=== PATIENT | female | born 1980 | race African-American/Black ===

== ENCOUNTER 2021-03-31 09:02 | Outpatient (REF) | payer OTHER, SELFPAY ==
[2021-03-31 09:20] LABS: MANUAL DIFF FLAG NO
[2021-03-31 10:11] LABS: Eosinophils Absolute Auto 0.1 X10*3/uL (0.0-0.4); Eosinophils Percent Auto 3.6 % (0-4); Hematocrit 40.5 % (37.0-47.0); Hemoglobin 13.1 g/dl (12.0-16.0); Lymphocytes Absolute Auto 1.2 X10*3/uL (1.2-4.9); Mean Corpuscular HGB Conc 32.3 g/dl (31.0-35.0); Mean Corpuscular Hemoglobin 29.4 pg (27.0-33.0); Mean Platelet Volume 9.8 fL (9.4-12.3); Monocytes Absolute Auto 0.4 X10*3/uL (0.1-1.2); Monocytes Percent Auto 14.3 % (2-11); Neutrophils Absolute Auto 1.3 x10*3/uL (2.0-8.3); Neutrophils Percent Auto 42.1 % (45-73); Platelet Count 296 X10*3/uL (160-400); Red Blood Count 4.45 X10*6/uL (4.20-5.50); Red Cell Distribution Width 11.9 % (11.0-16.0); White Blood Count 3.1 X10*3/uL (4.8-10.8)
[2021-03-31 10:25] LABS: Alanine Aminotransferase 12 U/L (0-31); Albumin Level 4.2 g/dL (3.5-5.0); Alkaline Phosphatase 51 U/L (39-117); Anion Gap 9 (12-20); Aspartate Amino Transferase 19 U/L (5-31); Bilirubin Total 0.9 mg/dL (0.0-1.0); Blood Urea Nitrogen 10 mg/dL (9-16); Calcium 9.5 mg/dL (8.4-10.2); Carbon Dioxide 27 mmol/L (22-29); Chloride 107 mmol/L (96-108); Cholesterol 185 mg/dL; Estimated Glomerular Filt Rate > 60; Glucose Fasting 94 mg/dL (60-99); HDL Cholesterol 48 mg/dL; Iron 145 mcg/dL (30-160); LDL Cholesterol Calculated 128 mg/dl; Percent Iron Saturation 42 % (15-50); Potassium 4.9 mmol/L (3.3-5.1); Sodium 138 mmol/L (135-145); Total Iron Binding Capacity 342 mcg/dL (228-428); Total Protein 7.6 g/dL (6.5-8.0); Triglycerides 49 mg/dL; Unsaturated Iron Binding 197 ug/dL
== END 2021-03-31 09:03 | disposition home or self-care (01) ==
LOC: HO.LAB 09:02
PROVIDERS: PCP Nurse Practitioner Family; Visit Provider Nurse Practitioner Family
DX: I10 Essential (primary) hypertension (principal); E78.00 Pure hypercholesterolemia, unspecified; D50.9 Iron deficiency anemia, unspecified; H11.009 Unspecified pterygium of unspecified eye; Z76.89 Persons encountering health services in other specified circumstances
CPT/HCPCS: 36415; 80053; 80061; 83540; 85025

== ENCOUNTER → 2021-07-12 09:29 | Outpatient (BNVA) | payer OTHER, SELFPAY | PROVIDERS: PCP Nurse Practitioner Family; Referring Provider Nurse Practitioner Family; Visit Provider Physician Assistant | DX: K64.4 Residual hemorrhoidal skin tags (principal); K64.8 Other hemorrhoids | CPT/HCPCS: 99202 ==

== ENCOUNTER → 2021-08-02 09:03 | Outpatient (BNVA) | payer OTHER, SELFPAY | PROVIDERS: PCP Nurse Practitioner Family; Referring Provider Physician Assistant; Visit Provider Surgery | DX: K64.4 Residual hemorrhoidal skin tags (principal); K64.8 Other hemorrhoids | CPT/HCPCS: 46600; 99202 ==

== ENCOUNTER 2023-04-03 09:05 | Outpatient (AMB) | payer SELFPAY ==
--- NOTE | 2023-04-03 09:07 | MHC.OFFVIS ---
Intake Vital Signs 04/03/23 09:13 Height 5 ft 3 in Weight 146 lb BMI 25.9 BP 120/71 Blood Pressure Location Rt brachial Position Sitting Pulse 91 Intake Visit Reasons: rectal bleeding, hemorrhoids re-discuss surgery Intake Note: This patient presents for an assessment to re-discuss hemorrhoidectomy, rectal bleeding, hemorrhoids. Pt c/o; reports rectal bleeding intermittent, hemorrhoids, reports no constipation, reports occasional bloating. Patient Resource Coordinator Required: No Back Up Scan Coordinator: Back Up Scan Coordinator offered & declined Accompanied by: Self / Same As Patient Allergies cat dander Allergy (Mild, Verified 04/03/23 09:14) unknown dog dander Allergy (Mild, Verified 04/03/23 09:14) Unknown tree and shrub pollen Allergy (Mild, Verified 04/03/23 09:14) Unknown Medication List - Last Reconciled 04/03/23 by Antwon Rhodes MD hydrocortisone-pramoxine 2.5-1 % 1 appl NC BID-TID PRN meclizine 12.5 mg PO TID PRN 10 days ondansetron HCl 4 mg PO Q8H PRN 7 days psyllium husk (Metamucil) 0.4 grams PO DAILY triamcinolone acetonide 0.5% 1 appl topical DAILY 15 days valacyclovir 500 mg PO DAILY witch samantha 50% (Preparation H (Witch Samantha)) 1 pad topical BID-TID PRN HPI rectal bleeding, hemorrhoids re-discuss surgery HPI Details 43-year-old female here because of hemorrhoidal issues. I had seen her in 2021 because of her hemorrhoids. She stated then that she was about 10 years ago, she has been having periodic pain, swelling and bleeding with her hemorrhoids. This seemed to have worsened the past few years . I had the long talk with her about the option of proceeding with hemorrhoidectomy but she decided not to proceed then She is here today to schedule for her hemorrhoidectomy as she continues to have episodes of significant pain, swelling and bleeding. She denies being constipated. [facility]LY [facility] Surgical History No pertinent past surgical history Family History Mother Hypertension Diabetes mellitus Father No problems noted. Social History (Reviewed 04/03/23 @ 09:15 by Suly Warren [facility] House Patient Tobacco Use Status: Never used Tobacco e-Cigarette/Vaping Use: Never Used Second Hand Smoke Exposure: No service: No Current occupational status: employed Cognitive needs: No Hearing needs: No Vision needs: No Review of Systems Const Denies chills and Denies fever(s) Card Denies chest pain, Denies dyspnea and Denies dyspnea on exertion Resp Denies cough, Denies dyspnea and Denies dyspnea on exertion GI Denies hematochezia and Denies change in bowel habits Denies hematuria Musc Denies back pain and Denies limited range of motion Neuro Denies focal weakness and Denies convulsions Psych Denies depression and Denies mood swings Physical Exam Vital Signs: Last Vital Signs Pulse 91 04/03/23 09:13 BP 120/71 04/03/23 09:13 BMI result Body Mass Index 25.9 Const General: comfortable and no acute distress Orientation/consciousness: patient oriented x3 Neck Neck: Yes no lymphadenopathy Resp Auscultation: clear to auscultation bilaterally Cardio Rhythm: regular rhythm GI Other: Rectal exam shows external hemorrhoids, moderate size on the right, smaller 1 on the left Palpation (GI): Soft to palpation, nontender and no guarding Neuro General: patient oriented x3 Assessment & Plan Assessment & Plan (1) Internal and external bleeding hemorrhoids: Comment: ref to Dr. Rhodes Code(s): K64.4 - Residual hemorrhoidal skin tags; K64.8 - Other hemorrhoids Plan: She continues to have episodes of pain, bleeding, and swelling of her hemorrhoids. She wants to proceed with hemorrhoidectomy. I had a long discussion with her about the technique of exam under anesthesia and hemorrhoidectomy. I discussed the risks including but not limited to bleeding, infections, postop pain, sphincter injury, poor healing, as well as the benefits and alternatives. I reviewed with her what to expect postoperatively. She wants to proceed. Coding Level of Care Code Est Pt Level 3 (12296) Diagnoses Internal and external bleeding hemorrhoids K64.4; K64.8
[2023-04-03 09:13] VITALS: BP 120/71; PULSE 91; BMI 25.9
== END 2023-04-03 09:36 | disposition home or self-care (01) ==
PROVIDERS: PCP Physician Assistant; Visit Provider Surgery
DX: K64.4 Residual hemorrhoidal skin tags (principal); K64.8 Other hemorrhoids
CPT/HCPCS: 99213

== ENCOUNTER → 2023-04-03 09:05 | Outpatient (BNVA) | payer SELFPAY | PROVIDERS: PCP Physician Assistant; Visit Provider Surgery | DX: K64.4 Residual hemorrhoidal skin tags (principal); K64.8 Other hemorrhoids | CPT/HCPCS: 99212 ==

== ENCOUNTER 2024-05-13 08:23 | Outpatient (REF) | payer OTHER, SELFPAY ==
[2024-05-13 09:30] LABS: Hematocrit 39.5 % (37.0-47.0); Hemoglobin 12.4 g/dl (12.0-16.0); Mean Corpuscular HGB Conc 31.4 g/dl (31.0-35.0); Mean Corpuscular Hemoglobin 26.7 pg (27.0-33.0); Mean Corpuscular Volume 84.9 fL (80.0-98.0); Mean Platelet Volume 10.2 fL (9.4-12.3); Platelet Count 339 X10*3/uL (160-400); Red Blood Count 4.65 X10*6/uL (4.20-5.50); Red Cell Distribution Width 13.3 % (11.0-16.0); White Blood Count 3.6 X10*3/uL (4.8-10.8)
[2024-05-13 10:24] LABS: Iron 173 mcg/dL (30-160); Percent Iron Saturation 58 % (15-50); Total Iron Binding Capacity 299 mcg/dL (228-428); Unsaturated Iron Binding 126 ug/dL
[2024-05-13 10:40] LABS: TSH reflex Free T4 < 0.01 uIU/mL (0.32-4.0)
[2024-05-13 11:20] LABS: Free T4 (Free Thyroxine) 1.37 ng/dL (0.71-1.85)
[2024-05-14 08:19] LABS: Prolactin 18.4 ng/mL
== END 2024-05-13 08:24 | disposition home or self-care (01) ==
LOC: HO.LAB 08:23
PROVIDERS: Absent Provider Nurse Practitioner; PCP Physician Assistant; Visit Provider Physician Assistant
DX: Z13.1 Encounter for screening for diabetes mellitus (principal); R79.89 Other specified abnormal findings of blood chemistry; D50.9 Iron deficiency anemia, unspecified
CPT/HCPCS: 36415; 83540; 84146; 84439; 84443; 85027

== ENCOUNTER 2024-06-02 15:58 | Outpatient (AMB) | payer OTHER, SELFPAY ==
[2024-06-02 16:02] VITALS: BP 110/70; PULSE 84; TEMP 36.3; O2SAT 99; BMI 26.1
--- NOTE | 2024-06-02 16:02 | A.OFFPC_ITS ---
Vital Signs 06/02/24 16:02 Height 5 ft 3 in Weight 147 lb 2 oz BMI 26.1 BP 110/70 Blood Pressure Location Lt brachial Position Sitting Pulse 84 Pulse Source Pulse Oximeter Temp 97.3 F Temp Source Temporal Artery Scan Pulse Oximetry (%) 99 Oxygen Delivery Method Room Air Intake Visit Reasons: establish care Working Manager Required: No Accompanied by: Self / Same As Patient Is last menstrual period known: Yes Last menstrual period: 05/17/24 Allergies cat dander Allergy (Mild, Verified 06/02/24 16:09) unknown dog dander Allergy (Mild, Verified 06/02/24 16:09) Unknown tree and shrub pollen Allergy (Mild, Verified 06/02/24 16:09) Unknown Medication List - Last Reconciled 06/02/24 by Jose Mejia PA-C hydrocortisone-pramoxine 2.5-1 % 1 appl SD BID-TID PRN meclizine 12.5 mg PO TID PRN 10 days ondansetron HCl 4 mg PO Q8H PRN 7 days triamcinolone acetonide 0.5% 1 appl topical DAILY 15 days valacyclovir 500 mg PO DAILY witch samantha 50% (Preparation H (Witch Samantha)) 1 pad topical BID-TID PRN Tobacco use date assessed: 03/30/21 HPI establish care HPI Details The patient is a 44-year-old female presenting with issues related to thyroid dysfunction and systolic hypertension. The patient has recent laboratory results from an endocrine evaluation showing abnormalities with TSH and prolactin levels . Family history reveals thyroid issues, namely Graves' disease present within immediate relatives, specifically her sister and niece. A noted historical condition of vertigo prompted lifestyle changes, ceasing alcohol and caffeine to prevent exacerbation. The patient's health management includes monitoring previous anemia, now reversed showing elevated serum iron, possibly linked to prolonged vitamin use since her last . Additionally, the patient reports an enduring rash condition coinciding with vertigo following her COVID-19 vaccination. She reports the rash as persisting in various locations, causing significant itchiness, which triamcinolone resolves. A known bleeding issue associated with the copper IUD is under current evaluation and management, with pending removal for resolution. Mammo: Has following [facility] mitten stitcher and getting mammograms. SMASH PIECER: Does see a SMASH PIECER at [facility] ( Dr. Hillman) Colon cancer screening: Interested in doing Cologuard [facility] Surgical History No pertinent past surgical history Family History (Updated 06/02/24 @ 16:14 by Jose Mejia PA-C) Mother Hypertension Diabetes mellitus Father No problems noted. Sister Graves disease Social History (Updated 06/02/24 @ 16:15 by Jose Mejia PA-C) Housing: House Alcohol intake: former Patient Tobacco Use Status: Never used Tobacco e-Cigarette/Vaping Use: Never Used Second Hand Smoke Exposure: No service: No Current occupational status: employed Current occupation: [employer] Cognitive needs: No Hearing needs: No Vision needs: No Female Reproductive History Menstrual Date of last menstrual period: 05/17/24 Questionnaire PHQ-9 Over the last 2 weeks, how often have you been bothered by any of the following problems? 1. Little interest or pleasure in doing things: not at all 2. Feeling down, depressed, or hopeless: not at all 3. Trouble falling or staying asleep, or sleeping too much: not at all 4. Feeling tired or having little energy: not at all 5. Poor appetite or overeating: not at all 6. Feeling bad about yourself - or that you are a failure or have let yourself or your family down: not at all 7. Trouble concentrating on things, such as reading the newspaper or watching television: not at all 8. Moving or speaking so slowly that other people could have noticed. Or the opposite - being so fidgety or restless that you have been moving around a lot more than usual: not at all 9. Thoughts that you would be better off or of hurting yourself in some way: not at all Total score: 0 Depression Screening Interpretation: Negative Depression Screening Done: Yes 69021 - PHQ-9 Billing: Yes Source: Developed by Drs. Rodolfo Mora, Billie Villalobos, Sylvester Buckley and colleagues, with an educational hilda from [employer]. Thrive Questionnaire Date Thrive assessed: 06/02/24 I am a: Patient What is your living situation today?: I have a steady place to live Within the past 12 months, did the food you bought not last and you didn't have the money to get more?: Never true Within the past 12 months, did you worry whether your food would run out before you got money to buy more?: Never true Do you have trouble paying for medicines?: No Do you have trouble getting transportation to medical appointments?: No Do you have trouble paying your heating and electricity bill?: No Do you have trouble taking care of your child, family member or friend?: No Do you have trouble with day-to-day activities such as bathing, preparing meals, shopping, managing finances, etc.?: No Are you currently unemployed and looking for a job?: No Are you interested in more education?: No Please select the resources that you would like help with: None Currently or been in a relationship where the following occur: No concerns reported THRIVE Score: 0 AUDIT C Alcohol Use Questionnaire (AUDIT-C) 1. How often do you have a drink containing alcohol?: Never 3. How often do you have six or more drinks on one occasion?: Never Total Score: 0 JUAN J-7 AMB Questionnaire JUAN J-7 Date JUAN J - 7 assessed: 06/02/24 Feeling nervous, anxious, or on edge: 0 = Not at all Not being able to stop or control worryin = Not at all Worrying too much about different things: 0 = Not at all Trouble relaxin = Not at all Being so restless that it is hard to sit still: 0 = Not at all Becoming easily annoyed or irritable: 0 = Not at all Feeling afraid as if something awful might happen: 0 = Not at all Total JUAN J-7 score (0-4 normal; 5-9 mild; 10-14 moderate; 15-21 severe): 0 Source: Developed by Drs. Rodolfo Mora, Billie Villalobos, Sylvester Buckley and colleagues, with an educational hilda from [employer]. JUAN J-7 Assessment Billing JUAN J-7 Assessment Tool: JUAN J-7 Assessment 55184 Review of Systems Const Denies headache(s) Eyes Denies loss of vision ENT Denies vertigo, Denies dizziness, Denies headache(s) and Denies sore throat Card Denies chest pain, Denies leg edema and Denies lightheadedness Resp Denies cough, Denies hemoptysis and Denies wheezing GI Denies abdominal pain, Denies melena, Denies constipation, Denies diarrhea and Denies vomiting Denies urinary frequency, Denies dysuria and Denies urinary urgency Musc Denies arthralgias, Denies joint swelling, Denies numbness and Denies tingling Neuro Denies Abnormal speech present, Denies behavioral changes, Denies vertigo, Denies dizziness, Denies headache(s), Denies loss of vision, Denies memory loss, Denies numbness and Denies tingling Psych Denies anxiety, Denies behavioral changes, Denies depression, Denies memory loss and Denies panic attacks Wilfredo/Lymph Denies easy bleeding and Denies easy bruising Aller/Immun Denies wheezing Physical exam (Primary Care) Vital Signs: Last Vital Signs Temp 97.3 F 06/02/24 16:02 Pulse 84 06/02/24 16:02 BP 110/70 06/02/24 16:02 Pulse Ox 99 06/02/24 16:02 Oxygen Delivery Method Room Air 06/02/24 16:02 BMI result Body Mass Index 26.1 Tobacco/Smoking Status: Tobacco use Status Tobacco use date assessed 03/30/21 06/02/24 16:04 Patient Tobacco Use Status Never used Tobacco 06/02/24 16:15 e-Cigarette/Vaping Use Never Used 06/02/24 16:15 PHQ-9: PHQ-9 Score PHQ-9: Total score 0 06/02/24 16:12 Depression Screening Interpretation: Negative Thrive Assessment: Date of Thrive Assessment Date Thrive assessed 06/02/24 06/02/24 16:06 Currently or been in a relationship where the following occur: No concerns reported Const General: healthy appearing, no acute distress, alert and awake Nutritional Appearance: well nourished Orientation/consciousness: oriented to person, oriented to place and oriented to time HENMT Ears: TM's normal bilaterally General nose exam: Normal nasal mucous membranes and turbinates present Eyes Conjunctivae: conjunctivae normal Sclerae: sclerae normal Pupils: Equal, round and reactive pupils present Neck Neck: Yes no lymphadenopathy and Yes no JVD Thyroid: Thyroid normal Carotids: no bruits Resp Effort & Inspection: normal respiratory effort and not tachypneic Auscultation: no crackles, no rales, no rhonchi and no wheezes Cardio Rate: regular rate Rhythm: regular rhythm Heart sounds: no murmurs and normal S1 and S2 GI Palpation (GI): Soft to palpation, nontender, no hepatomegaly and no splenomegaly Auscultation: normal bowel sounds Skin General skin exam: no rashes or lesions noted and dry skin Neuro General: oriented to person, oriented to place and oriented to time Cranial nerves: Yes Equal, round and reactive pupils present Speech: No Abnormal speech present Gait exam (Neuro): Normal gait present Motor exam (neuro): no tremor noted Extrem Right upper extremity: full ROM Left upper extremity: full ROM Right lower extremity: full ROM; no edema Left lower extremity: full ROM; no edema Psych Mental Status: mental status grossly normal Speech and movement: Normal speech and movement present Affect: normal affect Attitude: cooperative Thought process: Normal thought process present Coding Level of Care Code Est Pt Level 4 (09580) Diagnoses Low TSH level R79.89 Benign paroxysmal positional vertigo due to bilateral vestibular disorder H81.13 Laterality: bilateral Iron deficiency anemia, unspecified iron deficiency anemia type D50.9 Iron deficiency anemia type: unspecified iron deficiency Iron overload E83.19 Acute urticaria L50.8 Additional Codes JUAN J-7 Assessment Billing - JUAN J-7 Assessment Tool: JUAN J-7 Assessment 31509 ([id number]) PHQ-9 - 26684 - PHQ-9 Billing: Yes ([id number]) Assessment & Plan Assessment & Plan (1) Low TSH level: Code(s): R79.89 - Other specified abnormal findings of blood chemistry Category: Medical Plan: Followed by [facility] Endocrinology. Noted low TSH though normal T4. She has stopped taking her vitamin with Biotene as there could be some disruption. Does have a family history of Graves disease. She otherwise has no signs and symptoms of thyroiditis. She has repeat labs in a few weeks to evaluate her thyroid again. (2) BPPV (benign paroxysmal positional vertigo): Code(s): H81.10 - Benign paroxysmal vertigo, unspecified ear Category: Medical Qualifiers: Laterality: bilateral Qualified Code(s): H81.13 - Benign paroxysmal vertigo, bilateral Plan: Uses meclizine as needed for her dizziness. (3) Iron deficiency anemia: Code(s): D50.9 - Iron deficiency anemia, unspecified Category: Medical Qualifiers: Iron deficiency anemia type: unspecified iron deficiency Qualified Code(s): D50.9 - Iron deficiency anemia, unspecified Plan: Has a history of iron-deficiency anemia, takes a with iron supplementation. Noted elevated iron on most recent labs (4) Iron overload: Code(s): E83.19 - Other disorders of iron metabolism Category: Medical Plan: Plan: Monitor iron levels due to vitamin intake. Will be sure to check her liver enzymes and ferritin (5) Acute urticaria: Code(s): L50.8 - Other urticaria Category: Medical Plan: Suspecting patient's recurrent skin issue could be related to her thyroid dysfunction. Plan: Treat rash with triamcinolone; refill prescribed. Orders: Orders Comprehensive [place]. Panel Fast 06/02/24 Z13.1 - Encounter for screening for diabetes mellitus Ferritin 06/02/24 D50.9 - Iron deficiency anemia, unspecified Referrals Cologuard Test Z12.11 - Encounter for screening for malignant neoplasm of colon, Z13.1 - Encounter for screening for diabetes mellitus Medications: Refilled triamcinolone acetonide 0.5% 1 appl topical DAILY 15 grams 3RF 15 days L50.8 - Other urticaria
--- OUTSIDE RECORDS SUMMARY | 2024-06-02 18:52 | XMS_ITS | Encounter Summary ---
Author Organization [facility] Address [address] [place] [id number] Care Team Providers Care Coloring Checker Name Role Phone Sisi Sanders MD Primary Care Provider [phone] Franc Deal MD Unavailable [phone] Pcp, No Primary Care Provider Unavailabl e Encounter Details Date Type Department Care Team (Late st Contact Info) Description 02/28/2018 Scanned Document [address] [place] [address] [phone] Lab, Scan Social History Tobacco Use Types Packs/Day Years Used Date Smoking Tobacco: Never Smokeless Tobacco: Never Alcohol Use Standard Drinks/Week Comments Yes 1 (1 standard drink = 0.6 oz pur e alcohol) Sex and Gender Information Value Date Recorded Sex Assigned at Not on file Gender Identity Not on file Sexual Orientation Not on file documented as of this encounter Plan of Treatment Not on file documented as of this encounter Procedures Procedure Name Priority Date/Time Associated Diagnosis Comments LAB RESULT 02/28/2018 documented in this encounter Results * LAB RESULT (02/28/2018) 02/28/2018 Scan Lab HX AMB PROCEDURES documented in this encounter Visit Diagnoses Not on filedocumented in this encounter Care Teams Coloring Checker Relationship Specialty Start Date End Date Sisi Sanders MD [address] [facility] [address] [place] [address] PCP - General Internal Medicine 06/28/16 05/10/22 Pcp, No [address] [place] [address] PCP - General 05/11/22 Franc Deal MD [address] [address] Referring Provider Obstetrics and Gynecology 11/05/17 documented as of this encounter
--- OUTSIDE RECORDS SUMMARY | 2024-06-02 18:52 | XMS_ITS | Encounter Summary ---
Author Organization [facility] Address [address] [place] [address] Care Team Providers Care University Intern Name Role Phone Pcp, No Primary Care Provider Unavailtyshawn e Sisi Sanders MD Primary Care Provider [phone] Franc Deal MD Unavailable [phone] Nubia Apodaca MD Primary Care Provider Unavailable Pcp, No Primary Care Provider Unavailtyshawn hagan Encounter Details Date Type Department Care Team (Late st Contact Info) Description 11/18/2014 Scanned Document [address] [phone] Provider, Generic Social History Tobacco Use Types Packs/Day Years Used Date Smoking Tobacco: Never Assessed Sex and Gender Information Value Date Recorded Sex Assigned at Not on file Gender Identity Not on file Sexual Orientation Not on file documented as of this encounter Plan of Treatment Not on file documented as of this encounter Visit Diagnoses Not on filedocumented in this encounter Care Teams University Intern Relationship Specialty Start Date End Date Pcp, No PCP - General General Medicine 06/12/16 06/27/16 Sisi Sanders MD [address] [address] PCP - General Internal Medicine 06/28/16 05/10/22 Nubia Apodaca MD [address] [place] [address] PCP - General 06/11/16 Pcp, No [address] [place] [address] PCP - General 05/11/22 Franc Deal MD [address] [address] Referring Provider Obstetrics and Gynecology 11/05/17 documented as of this encounter
--- OUTSIDE RECORDS SUMMARY | 2024-06-02 18:52 | XMS_ITS | Encounter Summary ---
Author Organization [facility] Address [address] [place], [place] [id number] Care Team Providers Care Section Hand Name Role Phone Sisi Sanders MD Primary Care Provider [phone] Franc Deal MD Unavailable [phone] Pcp, No Primary Care Provider Unavailabl e Encounter Details Date Type Department Care Team (Late st Contact Info) Description 02/28/2018 Scanned Document [address] [place] [phone] Provider, Generic Social History Tobacco Use Types [...] Procedure Name Priority Date/Time Associated Diagnosis Comments PATHOLOGY GYNECOLOGY 02/28/2018 documented in this encounter Results * PATHOLOGY GYNECOLOGY (02/28/2018) 02/28/2018 Narrative Marilyn Grande - 02/28/2018 Ordered by an unspecified provider. Generic Provider [facility] HX PATH PROCEDUR ES documented in this encounter Visit Diagnoses Not on filedocumented in this encounter Care Teams Section Hand Relationship Specialty Start Date End Date Sisi Sanders MD [address] [place] [address] PCP - General Internal Medicine 06/28/16 05/10/22 Pcp, No [address] [place] [address] PCP - General 05/11/22 Franc Deal MD [facility] [address] [place] [address] Referring Provider Obstetrics and Gynecology 11/05/17 documented as of this encounter
--- OUTSIDE RECORDS SUMMARY | 2024-06-02 18:52 | XMS_ITS | Encounter Summary ---
Author Organization [facility] Address [address] [place] [id number] Care Team Providers Care Body Maker Machine Setter Name Role Phone Sisi Sanders MD Primary Care Provider [phone] Franc Deal MD Unavailable [phone] Pcp, No Primary Care Provider Unavailabl e Encounter Details Date Type Department Care Team (Late st Contact Info) Description 11/21/2017 Scanned Document [address] [place] [phone] Provider, Generic Social History Tobacco Use Types [...] on filedocumented in this encounter Care Teams Body Maker Machine Setter Relationship Specialty Start Date End Date Sisi Sanders MD [address] [facility] [address] [place] [address] PCP - General Internal Medicine 06/28/16 05/10/22 Pcp, No [address] [place] [address] PCP - General 05/11/22 Franc Deal MD [address] [place] [address] Referring Provider Obstetrics and Gynecology 11/05/17 documented as of this encounter
--- OUTSIDE RECORDS SUMMARY | 2024-06-02 18:52 | XMS_ITS | Clinical Summary ---
Author Organization Formerly [facility] Address [address] [place] [address] Care Team Providers Care Process Mold Technician Name Role Phone Franc Deal MD Unavailable [phone] Pcp, No Primary Care Provider Unavailabl e Allergies No known active allergies Medications Medication Sig Dispensed Refills Start Date End Date Status vitamin with iron and folic acid ( VITAMINS) 28-0.8 MG Tab tablet Take 1 tablet by mouth daily. Active Elastic Bandages & Supports (JORDIN ELBOW BRACE SMALL/MEDIUM) MiscIndications:Med ial epicondylitis, left elbow To be used when requiring bending and use of the elbow 1 Package 05/28/2018 Active fexofenadine (DASH) 60 MG tabletIndications:S easonal allergic rhinitis, unspecified trigger Take 1 tablet (60 mg total) by mouth 2 (two) times a day. Administer with water only; do not administer with fruit juices. 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 Murmur 06/20/2016 Immunizations Name Administration Dates Next Due Tdap 07/20/2011 Family History Medical History Relation Name Comments Diabetes type II Brother No Known Problems Father Esophageal cancer Maternal Uncle Diabetes Mother Relation Name Status Comments Brother Father Alive Maternal Uncle Mother Alive Social History Tobacco Use Types Packs/Day Years Used Date Smoking Tobacco: Never Smokeless Tobacco: Never Alcohol Use Standard Drinks/Week Comments Yes 1 (1 standard drink = 0.6 oz pur e alcohol) Sex and Gender Information Value Date Recorded Sex Assigned at Not on file Gender Identity Not on file Sexual Orientation Not on file Last Filed Vital Signs Vital Sign Reading Time Taken Comments Blood Pressure 158/84 05/28/2018 1:42 PM EDT Pulse 59 05/28/2018 1:42 PM EDT Temperature 36.6 ??C (97.9 ??F) 05/28/2018 1:42 PM ED T Respiratory Rate 16 11/05/2017 3:17 PM EDT Oxygen Saturation 100% 05/28/2018 1:42 PM EDT Inhaled Oxygen Concentration - - Weight 63 kg (139 lb) 05/28/2018 1:42 PM EDT Height 160 cm (5' 3 ) 05/28/2018 1:42 PM EDT Body Mass Index 24.62 05/28/2018 1:42 PM EDT Plan of Treatment Health Maintenance Due Date Last Done Comments Hepatitis B Vaccines (1 of 3 - 19+ 3-dose series) 1998 Mammogram 2019 DTaP/Tdap/Td Vaccines (2 - Td or Tdap) 07/19/2021 07/20/2011 Pap Smear (Ages 21-65) 07/28/2022 , 06/02/2021 (Previously Completed), 03/04/2019, Additional history exists Influenza Vaccine 09/19/2023 12/11/2011 COVID-19 Vaccine (2 - 2023- season) 2023 05/27/2020 Colonoscopy 07/29/2031 07/28/2021 HIV Screening Completed 11/08/2017, 01/07/2017 Hepatitis C Virus Screening Completed 11/08/2017 HPV Vaccines Aged Out No longer eligi ble based on patient's age to complete this topic Pneumococcal Vaccine: Pediatric (0-5 Years) and At-Risk Patients (6 to 49 Years) Aged Out No longer eligible based on patient's age to complete this topic Procedures Procedure Name Priority Date/Time Associated Diagnosis Comments HX GASTROENTEROLOGY COLONOSCOPY-SCAN Routine 07/28/2021 PATHOLOGY GYNECOLOGY Routine 07/28/2021 HIV 1/2 AG/AB CMIA REFLEX TO CONFIRMATION Routine 11/08/2017 9:12 AM EDT Annual physical exam HEPATITIS C VIRUS (HCV) ANTIBODY Routine 11/08/2017 9:12 AM EDT Annual physical exam from Last 3 Months or Most Recently Relevant to Health Maintenance Results * HX GASTROENTEROLOGY COLONOSCOPY-SCAN (07/28/2021) External Provider MD [facility] AMB PROCEDURES * PATHOLOGY GYNECOLOGY (07/28/2021) External Provider MD [facility] HX PATH PROCEDU RES * HIV 1/2 Ag/Ab CMIA Reflex to Confirmation (11/08/2017 9:12 AM EDT) HIV Ag/Ab, 4th Gen NON-REACT ARASELI NON-REACT ARASELI [facility] Comment: HIV-1 antigen and HIV-1/HIV-2 antibodies were not detected. There is no laboratory evidence of HIV infection. PLEASE NOTE: This information has been disclosed to you from records whose confidentiality may be protected by state law. ??If your state requires such protection, then the state law prohibits you from making any further disclosure of the information without the specific written consent of the person to whom it pertains, or as otherwise permitted by law. A general authorization for the release of medical or other information is NOT sufficient for this purpose. ?? For additional information please refer to http://education.[employer]/faq/YEJ525 (This link is being provided for informational/ educational purposes only.) The performance of this assay has not been clinically validated in patients less than 2 years old. Blood specimen (specimen) 11/08/2017 9:12 AM EDT 11/08/2017 9:12 AM EDT Narrative Resulting Agency Comment Performing Organization Information: ?Site ID: [id number] ?Name: [facility] ?Address: [address] [place] [address], [place] [id number] ?Director: Saeid Campos MD Sisi Sanders MD LAB BLOOD ORDERABL ES [facility] [address] [id number] * Hepatitis C Virus (HCV) Antibody (11/08/2017 9:12 AM EDT) Hepatitis C Antibody NON-REACTI VE NON-REACT ARASELI [facility] Hepatitis C Antibody (s/co) 0.02 <1.00 [facility] Blood specimen (specimen) 11/08/2017 9:12 AM EDT 11/08/2017 9:12 AM EDT Narrative Resulting Agency Comment Performing Organization Information: ?Site ID: [id number] ?Name: [facility] ?Address: [address] [place] [id number] ?Director: Saeid Campos MD Sisi Sanders MD LAB BLOOD ORDERABL ES [facility] [address] [id number] from Last 3 Months or Most Recently Relevant to Health Maintenance Care Teams Process Mold Technician Relationship Specialty Start Date End Date Pcp, No [address] [place] [address] PCP - General 05/11/22 Franc Deal MD [address] [address] Referring Provider Obstetrics and Gynecology 11/05/17
== END 2024-06-02 16:40 | disposition home or self-care (01) ==
PROVIDERS: PCP Physician Assistant; Visit Provider Physician Assistant
DX: R79.89 Other specified abnormal findings of blood chemistry (principal); H81.13 Benign paroxysmal vertigo, bilateral; D50.9 Iron deficiency anemia, unspecified; L50.8 Other urticaria

== ENCOUNTER → 2024-06-02 15:58 | Outpatient (BNVA) | payer OTHER, SELFPAY | PROVIDERS: PCP Physician Assistant; Visit Provider Physician Assistant | DX: R94.6 Abnormal results of thyroid function studies (principal); H81.13 Benign paroxysmal vertigo, bilateral; D50.9 Iron deficiency anemia, unspecified; E83.19 Other disorders of iron metabolism; L50.8 Other urticaria | CPT/HCPCS: 96127 ==